=== PATIENT | male | born 2000 | race Caucasian/White ===

== ENCOUNTER 2020-07-11 10:30 | Outpatient (REF) | payer MEDICAID, OTHER, SELFPAY | END 2020-07-11 10:31 | disposition home or self-care (01) | LOC: HO.LAB 10:30 | PROVIDERS: Visit Provider Internal Medicine | DX: Z20.828 Contact with and (suspected) exposure to other viral communicable diseases (principal) | CPT/HCPCS: 87635 ==

== ENCOUNTER 2020-12-26 10:26 | Outpatient (REF) | payer MEDICAID, OTHER, SELFPAY | END 2020-12-26 10:27 | disposition home or self-care (01) | LOC: HO.LAB 10:26 | PROVIDERS: Visit Provider Internal Medicine | DX: Z20.822 Contact with and (suspected) exposure to COVID-19 (principal) | CPT/HCPCS: C9803; U0003; U0005 ==

== ENCOUNTER 2023-11-26 11:53 | Emergency (ER) | payer OTHER, SELFPAY ==
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
[2023-11-26 12:14] VITALS: BP 115/77; BP 130/80; PULSE 74; PULSE 80; RESP 18; O2SAT 97; O2SAT 99; BMI 23.6
[2023-11-26] MEDS: Cyclobenzaprine HCl 10 MG TABLET PO (14:17)
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
[2023-11-26] MEDS: Acetaminophen 325 MG TABLET 975 MG PO (14:18)
== END 2023-11-26 15:38 | disposition home or self-care (01) ==
PROVIDERS: Emergency Provider Student in an Organized Health Care Education/Training Program
DX: S16.1XXA Strain of muscle, fascia and tendon at neck level, initial encounter (principal); V43.52XA Car driver injured in collision with other type car in traffic accident, initial encounter; Y93.9 Activity, unspecified; Y92.9 Unspecified place or not applicable; Y99.9 Unspecified external cause status
CPT/HCPCS: 70450; 72125; 99284